=== PATIENT | female | born 1965 | race Two or more races ===

== ENCOUNTER → 2024-03-20 09:51 | Outpatient (REF) | payer OTHER, SELFPAY | LOC: RCS 09:51 | PROVIDERS: ATTENDING PHYSICIAN Internal Medicine Cardiovascular Disease; FAMILY PHYSICIAN Family Medicine | DX: R07.2 Precordial pain (principal); E78.2 Mixed hyperlipidemia | CPT/HCPCS: 93017; 93350 ==

== ENCOUNTER 2024-08-12 17:50 | Inpatient (IN) | payer OTHER, SELFPAY ==
[2024-08-12] VITALS (9 sets, daily range): BP systolic 98–141; BP diastolic 49–81; BMI 27.4
--- NOTE | 2024-08-12 11:22 | ED.GENMED ---
ED Provider Triage
<Nathanael Lisa PA-C - Last Filed: 08/12/24 11:25>
-
Patient seen by provider in Triage?: Seen in Triage
58-year-old female presents with urinary symptoms ongoing for several days. She spoke with his family doctor over the phone 2 days ago and was started on Bactrim. She has been on back for 2 days but notes no improvement of symptoms. She notes a
fever. Temperature at triage is 101. This was an hour after taking a gram of Tylenol at home. She is not tachycardic at triage. She complains of mild suprapubic burning but no flank pain or reported vomiting.
Will check urinalysis and labs including lactic acid. Due to lower abdominal discomfort, CT ordered with IV contrast
History of Present Illness
<Nathanael Lisa PA-C - Last Filed: 08/12/24 11:25>
General
Chief Complaint: Urinary Symptoms
Time Seen by Provider: 08/12/24 13:41
<Kathrin Haywood MD - Last Filed: 08/12/24 16:01>
General
Source: patient and family
History of Present Illness
History of Present Illness:
58-year-old female presents here with her daughter who is a physician. She was feeling her usual self until Monday when she noted extreme dysuria associated with urinary frequency and urgency. She had leftover Bactrim which she started. She felt
better until Monday afternoon when her symptoms returned and were more intense. She spoke with her primary care doctor and was given a new prescription for Bactrim given the concern that her older prescription may have been . She started
that on Monday afternoon. She continues to be compliant with the Bactrim. Yesterday she noted slightly less dysuria but increasing urinary frequency. Today she felt like she got worse. She has not bribes fever, chills, fatigue, and her head
feeling heavy. She denies flank or back pain, chest pain, shortness of breath, cough, sore throat, rhinorrhea. She feels suprapubic 'pressure', and notes a 'lingering pain' across her lower abdomen including her right lower quadrant. This is
without radiation, exacerbating, relieving factors.
Past History
<Nathanael iLsa PA-C - Last Filed: 08/12/24 11:25>
Past History
ED Past Medical History: None
ED Past Surgical History: Tonsilectomy
Social History
Tobacco: Non-smoker
Alcohol: None
Drug: None
Personal:
<Kathrin Haywood MD - Last Filed: 08/12/24 16:01>
Past History
ED Past Medical History: Psychiatric
Social History
Living: with family
Phy Exam
<Kathrin Haywood MD - Last Filed: 08/12/24 16:01>
Physical Exam
Physical Exam:
GENERAL: Alert , in no apparent distress
EYE: pupils equal and reactive
NECK: Supple, no significant adenopathy.
ENT: o/p clr, mmm.
CARDIAC: Regular rate and rhythm .
LUNGS: Clear breath sounds bilaterally, no acute respiratory distress, no wheezes/rales/rhonchi
ABDOMEN: Soft, mild lower abdominal tenderness, no r/g, no cvat
NEUROLOGICAL: Alert and oriented, no focal neuro deficits
SKIN: Warm and dry, skin intact.
MUSCULOSKELETAL: No edema, well perfused.
PSYCH: Normal and appropriate interaction.
Sepsis
<Kathrin Haywood MD - Last Filed: 08/12/24 16:01>
Sepsis Screening
Sepsis Assessment: Sepsis
Sepsis Screen
Sepsis Screen: Sepsis
Date: 08/12/24
Time: 16:00
Course
<Nathanael Lisa PA-C - Last Filed: 08/12/24 11:25>
Orders/Labs/Results
Orders:
Orders
08/12/24 11:24
CT Abd/pelvis W Iv Cont Urgent
Comment:
Reason For Exam: lower abdominal pain, fever
08/12/24 11:31
Complete Blood Count/With Diff Urgent
Comprehensive Metabolic Panel Urgent
Lactic Acid Q4H
Comment: CANCEL 2nd LACTIC ACID IF 1st LACTIC ACID IS LESS THAN 2
Urinalysis Reflex To Culture Urgent
Date Specimen was Collected: 08/12/24
Time Specimen was Collected: 11:25
Urine Microscopic Reflex Cult Urgent
Blood Culture Urgent
CANDACE Source: Blood/Venous
Specimen Description:
Urine Culture Urgent
CANDACE Source: U
Specimen Description:
Date Specimen was Collected: 08/12/24
Time Specimen was Collected: 11:25
08/12/24 13:56
Ketorolac [Toradol] 10 mg IV NOW STA
08/12/24 13:57
0.9% Sodium Chloride 1000 ml [Nss] 1,000 ml IV BOLUS
08/12/24 15:34
Piperacillin/Tazo 3.375 Gram [Zosyn] 3.375 gram in 50 ml IV NOW
08/12/24 15:42
Phenazopyridine HCl [Pyridium] 200 mg PO NOW STA
08/12/24 16:00
0.9% Sodium Chloride 1000 ml [Nss] 1,000 ml IV 600 mls/hr
Abnormal Lab Results
08/12/24
11:31
WBC 12.8 H 10^3/uL
(4.8-10.8)
Hgb 11.8 L g/dL
(12.0-16.0)
MCH 25.9 L pg
(27.0-31.0)
MCHC 31.7 L g/dL
(33.0-37.0)
Abs Immat Gran (auto) 0.1 H 10^3/uL
(0-0.05)
Absolute Neuts (auto) 11.0 H 10^3/uL
(1.4-6.5)
Absolute Lymphs (auto) 1.1 L 10^3/uL
(1.2-3.4)
Absolute Monos (auto) 0.7 H 10^3/uL
(0.1-0.6)
Neutrophils % 85.5 H %
(42.2-75.2)
Lymphocytes % 8.3 L %
(20.5-51.1)
Carbon Dioxide 21 L mmol/L
(22-30)
Glucose 106 H mg/dl
(70-99)
Ur Occult Blood Reflex 3+ A
(Negative)
Leukocyte Esterase Rfl Trace A
(Negative)
Urine RBC 7-10 A /HPF
(0-2)
Urine Bacteria (Reflex) Many A
(Negative)
08/12/24 11:31
08/12/24 11:31
Vital Signs
Initial and Last Documented VS:
Initial Vital Signs
Temp Pulse Resp BP Pulse Ox
101.5 F H 94 18 141/75 93
08/12/24 11:22 08/12/24 11:22 08/12/24 11:22 08/12/24 11:22 08/12/24 11:22
Last Documented Vital Signs
Temp Pulse Resp BP Pulse Ox
97.7 F 76 13 112/49 98
08/12/24 15:53 08/12/24 15:53 08/12/24 15:53 08/12/24 15:53 08/12/24 15:53
<Kathrin Haywood MD - Last Filed: 08/12/24 16:01>
Orders/Labs/Results
Orders:
Orders
08/12/24 11:24
CT Abd/pelvis W Iv Cont Urgent
Comment:
Reason For Exam: lower abdominal pain, fever
08/12/24 11:31
Complete Blood Count/With Diff Urgent
Comprehensive Metabolic Panel Urgent
Lactic Acid Q4H
Comment: CANCEL 2nd LACTIC ACID IF 1st LACTIC ACID IS LESS THAN 2
Urinalysis Reflex To Culture Urgent
Date Specimen was Collected: 08/12/24
Time Specimen was Collected: 11:25
Urine Microscopic Reflex Cult Urgent
Blood Culture Urgent
CANDACE Source: Blood/Venous
Specimen Description:
Urine Culture Urgent
CANDACE Source: U
Specimen Description:
Date Specimen was Collected: 08/12/24
Time Specimen was Collected: 11:25
08/12/24 13:56
Ketorolac [Toradol] 10 mg IV NOW STA
08/12/24 13:57
0.9% Sodium Chloride 1000 ml [Nss] 1,000 ml IV BOLUS
08/12/24 15:34
Piperacillin/Tazo 3.375 Gram [Zosyn] 3.375 gram in 50 ml IV NOW
08/12/24 15:42
Phenazopyridine HCl [Pyridium] 200 mg PO NOW STA
08/12/24 16:00
0.9% Sodium Chloride 1000 ml [Nss] 1,000 ml IV 600 mls/hr
Abnormal Lab Results
08/12/24
11:31
WBC 12.8 H 10^3/uL
(4.8-10.8)
Hgb 11.8 L g/dL
(12.0-16.0)
MCH 25.9 L pg
(27.0-31.0)
MCHC 31.7 L g/dL
(33.0-37.0)
Abs Immat Gran (auto) 0.1 H 10^3/uL
(0-0.05)
Absolute Neuts (auto) 11.0 H 10^3/uL
(1.4-6.5)
Absolute Lymphs (auto) 1.1 L 10^3/uL
(1.2-3.4)
Absolute Monos (auto) 0.7 H 10^3/uL
(0.1-0.6)
Neutrophils % 85.5 H %
(42.2-75.2)
Lymphocytes % 8.3 L %
(20.5-51.1)
Carbon Dioxide 21 L mmol/L
(22-30)
Glucose 106 H mg/dl
(70-99)
Ur Occult Blood Reflex 3+ A
(Negative)
Leukocyte Esterase Rfl Trace A
(Negative)
Urine RBC 7-10 A /HPF
(0-2)
Urine Bacteria (Reflex) Many A
(Negative)
08/12/24 11:31
08/12/24 11:31
Vital Signs
Initial and Last Documented VS:
Initial Vital Signs
Temp Pulse Resp BP Pulse Ox
101.5 F H 94 18 141/75 93
08/12/24 11:22 08/12/24 11:22 08/12/24 11:22 08/12/24 11:22 08/12/24 11:22
Last Documented Vital Signs
Temp Pulse Resp BP Pulse Ox
97.7 F 76 13 112/49 98
08/12/24 15:53 08/12/24 15:53 08/12/24 15:53 08/12/24 15:53 08/12/24 15:53
<Kathrin Haywood MD - Last Filed: 08/12/24 16:01>
Update Note
Update Note:
Patient presents to the Emergency Department with __fever fatigue dysuria urinary frequency
Number and Complexity of Problems Addressed at the Encounter
� Chronic conditions affecting care:
� Acute Exacerbation and/or Progression of Chronic Illness:
� Differential Diagnosis includes: But not limited to pyelonephritis, urosepsis, cystitis, kidney stone, appendicitis, etc. etc.
Amount and/or Complexity of Data to be Reviewed and Analyzed
� I performed an independent evaluation of and my interpretation is:
EKG:
CT:CHEST:The included lung bases contain some mild dependent subsegmental atelectasis.
ABDOMEN:There is no focal intrinsic abnormality of the liver, spleen, gallbladder, pancreas or adrenal glands. No biliary tract dilatation is seen. Small simple right renal cysts are noted and there is a subcentimeter low-attenuation lateral right
renal lesion too small to characterize. In addition, best appreciated on delayed postcontrast, there is a small focus of decreased attenuation along the superior/medial aspect of the right kidney. There is a subcentimeter low-attenuation left renal
cysts. Renal excretion is symmetric. The abdominal aorta is normal in caliber. There is no retroperitoneal lymphadenopathy. Evaluation of the intestinal tract is markedly limited without oral contrast without intestinal obstruction. The there are no
right lower quadrant inflammatory changes.
PELVIS:The urinary bladder demonstrates demonstrates at least mild relative diffuse wall thickening. There is no true pelvis free fluid or significant.
SKELETON:There is no focal suspicious osseous lesion.
Xrays:
Laboratory Studies:leukocytosis iwth L shift, lactic wnl, urine abnl
Other:
� Review of other/old records reveals:
� Clinical information was obtained by an independent historian: Daughter who is bedside
� Prescriptions/Medications Considered but not given:
� Further testing considered but not performed:
Risk of Complications and/or Morbidity or Mortality of Patient Management
� Social determinants of health affecting care:
� Discussion with other providers (PCP, Hospitalists, Consultants, etc):
� Escalation of care including admission/observation vs risk of discharge considered: Case d/w ID (Dr Sauceda), agrees with zosyn given pt on bactrim. Bp remains satble, 30 cc/kg IVF ordered, pt resting comfortably, daughter updated.
D/w hospitalist for admission.
ED Attending Note
<Nathanael Lisa PA-C - Last Filed: 08/12/24 11:25>
-
Portions of this chart may have been created with voice recognition software.� Occasional wrong word or��sound alike� substitutions may have occurred due to the inherent limitations of voice recognition software.
Discharge Plan
Departure
Patient Disposition: Admit
Date of Disposition: 08/12/24
Time of Disposition: 15:59
Presentation/result/management discussed w/ accepting MD/DO: Hospitalist
Condition: Fair
Discharge Problem:
urosepsis
Prescriptions:
No Action
ibuprofen 200 mg Capsule
400 mg PO Q6HPRN PRN (Reason: mild pain/fever)
Theragen Tablet
1 tab PO DAILY
sulfamethoxazole-trimethoprim 800-160 mg tablet
1 tab PO BID
acetaminophen 500 mg Tablet
1,000 mg PO Q6HPRN PRN (Reason: mild pain/fever)
duloxetine 60 mg Capsule,Delayed Release(Dr/Ec)
60 mg PO DAILY
Referrals:
Vishal Weems MD [Family Provider] -
Interventions
Interventions:
*Risk Screen - Suicide Last Done: 08/12/24 11:22
*General Assessment Last Done: 08/12/24 11:22
*Neglect/Abuse Screening Last Done: 08/12/24 11:22
*ED COVID-19 Vaccine History Last Done: 08/12/24 11:22
Discharge Date and Time
Print Language: KHMER
[2024-08-12 11:58] LABS: Urine Albumin Trace (Neg - Trace); Urine Bilirubin Negative (Negative); Urine Character Clear (Clear); Urine Color Yellow; Urine Glucose Negative (Negative); Urine Ketone Negative (Negative); Urine Leukocyte Trace (Negative); Urine Nitrite Negative (Negative); Urine Occult Blood 3+ (Negative); Urine Specific Gravity 1.005 (<1.030); Urine Urobilinogen Negative (Neg - 1+)
[2024-08-12 12:00] LABS: % Basophils 0.2 % (0-2); % Immature Granulocytes 0.5 % (0-0.5); % Lymphocytes 8.3 % (20.5-51.1); % Monocytes 5.5 % (1.7-9.3); % Neutrophils 85.5 % (42.2-75.2); Absolute Immature Granulocytes 0.1 10^3/uL (0-0.05); Absolute Lymphocytes 1.1 10^3/uL (1.2-3.4); Absolute Monocytes 0.7 10^3/uL (0.1-0.6); Hematocrit 37.2 % (37.0-47.0); Hemoglobin 11.8 g/dL (12.0-16.0); Mean Corp Hgb Conc. 31.7 g/dL (33.0-37.0); Mean Corpuscular Hgb 25.9 pg (27.0-31.0); Mean Corpuscular Volume 81.6 fL (81.0-99.0); Mean Platelet Volume 10.1 fL (7.4-10.4); Nucleated Red Blood Cells % 0 %; Platelet Count 332 10^3/uL (130-400); Red Blood Cell Count 4.56 10^6/uL (4.20-5.40); Red Cell Dist. Width 14.3 % (11.5-14.5); White Blood Cell Count 12.8 10^3/uL (4.8-10.8)
[2024-08-12 12:03] LABS: Lactic Acid 1.7 mmol/L (0.7-2.0)
[2024-08-12 12:24] LABS: Urine Amorphous Seen
[2024-08-12 12:25] LABS: ALT (SGPT) 17 U/L (0-35); AST (SGOT) 22 U/L (14-36); Albumin 4.3 g/dl (3.5-5.0); Alkaline Phosphatase 115 U/L (38-126); Blood Urea Nitrogen 9 mg/dl (7-17); Calcium 9.9 mg/dl (8.4-10.2); Carbon Dioxide 21 mmol/L (22-30); Chloride 100 mmol/L (98-107); Glucose 106 mg/dl (70-99); Potassium 4.2 mmol/L (3.5-5.1); Sodium 136 mmol/L (135-145); Total Bilirubin 0.8 mg/dl (0.2-1.3); Total Protein 7.1 g/dl (6.3-8.2); eGFR > 60.00
[2024-08-12 12:26] LABS: Urine Bacteria Many (Negative)
[2024-08-12] MEDS: TORADOL 10 MG IV (14:29)
[2024-08-12] MEDS: NSS 1000 IV ×4 (14:29→23:51)
[2024-08-12] MEDS: ZOSYN 50 IV ×2 (16:00→22:17)
[2024-08-12] MEDS: Pyridium 200 MG PO (16:02)
--- NOTE | 2024-08-12 17:07 | HPS.HSE ---
Family Physician
-
Family Physician: Vishal Weems
Chief Complaint
-
Chills, dysuria,freq of urine, and low abdominal discomfort
History of Present Illness
Symptoms started 4 days ago.
It is dysuria with freq of urine and some urgency.
She had lower abdo discomfort. Denies back /flank pain.
She has issues of recurrent UTI in past. Last one was last year.
She had some Bactrim from previous prescription so started to take it. She called PCP who said that she will send in a prescription for Bactrim course. She did not have a urine checked.
No nausea vomiting.
No history of diabetes mellitus type 1 or 2.
Denies any history of drug-resistant bacteria isolates in the past.
Not immune suppressed.
Medical History
Past Medical History
Past Medical History: Reports Psychiatric (depression)
Past Surgical History: Reports Tonsilectomy
Social History
Tobacco: Non-smoker
Alcohol: None
Personal:
Living: With Family
Family History
Family History: Not pertinent
Allergies / Home Medications
Allergies reflects when Allergies were last updated in [facility].
Home Medications with original date entered in [facility]
Allergy/Medication List:
Allergies
Allergy/AdvReac Type Severity Reaction Status Date / Time
No Known Allergies Allergy Unverified 01/18/19 09:14
Home Medications
acetaminophen 500 mg tablet 1,000 mg PO Q6HPRN PRN mild pain/fever 08/12/24
duloxetine 60 mg capsule,delayed release 60 mg PO DAILY 08/12/24
ibuprofen 200 mg capsule 400 mg PO Q6HPRN PRN mild pain/fever 08/12/24
sulfamethoxazole 800 mg-trimethoprim 160 mg tablet 1 tab PO BID 08/12/24
therapeutic multivitamin 1 tab PO DAILY 08/12/24
Review of Systems
-
A 12 point ROS was completed and negative except as noted: Yes
Physical Exam
Vital Signs
Vital Signs
Temp Pulse Resp BP Pulse Ox
97.7 F 81 13 112/49 98
08/12/24 16:06 08/12/24 16:00 08/12/24 15:53 08/12/24 15:53 08/12/24 15:53
Physical Exam
General: Comfortable
HEENT: Moist mucous membranes
Respiratory: Clear
Cardiac: S1/S2 and Regular Rhythm; No Tachycardia
GI: Soft, Non Distended, Normal Bowel Sounds and Tender (Suprapubic area discomfort)
Genito-urinary: No costovertebral tender
Neuro: AO x 3
Laboratory Results
-
08/12/24 11:31
08/12/24 11:31
Laboratory Results
Lactic Acid Cancelled 08/12/24 15:30
Total Bilirubin 0.8 mg/dl (0.2-1.3) 08/12/24 11:31
AST 22 U/L (14-36) 08/12/24 11:31
ALT 17 U/L (0-35) 08/12/24 11:31
Alkaline Phosphatase 115 U/L (38-126) 08/12/24 11:31
Data Reviewed
-
CT Scan: Report Reviewed by me (Abdomen pelvis)
Lab Data: Labs Reviewed by me
Impression/Plan
-
UTI with sepsis. Though no clinical symptoms but based on CT of the abdomen pelvis cannot rule out a segmental pyelonephritis of the right kidney. In view of recurrent UTIs and prior antibiotic exposure will cover with Zosyn due to concern of MDR
till culture data is back. Admit to hospital because of sepsis and failed outpatient Bactrim.
Follow urine and blood culture data.
Follow WBC and clinical response.
Depression-continue the home medication.
[2024-08-12] MEDS: TYLENOL 650 MG PO (20:57)
[2024-08-12] MEDS: TORADOL 15 MG IV (22:48)
[2024-08-12] MEDS: LOVENOX 40 MG SC (22:51)
[2024-08-13] MEDS: NSS 1000 IV (01:26)
[2024-08-13] MEDS: NSS IV ×3 (01:26)
[2024-08-13] MEDS: ZOSYN 50 IV ×4 (04:19→21:12)
[2024-08-13] MEDS: TYLENOL 650 MG PO (05:56)
[2024-08-13 06:00] VITALS: BMI 27.4
[2024-08-13 07:18] LABS: Hematocrit 33.5 % (37.0-47.0); Hemoglobin 10.6 g/dL (12.0-16.0); Mean Corp Hgb Conc. 31.6 g/dL (33.0-37.0); Mean Corpuscular Hgb 25.7 pg (27.0-31.0); Mean Corpuscular Volume 81.3 fL (81.0-99.0); Mean Platelet Volume 10.3 fL (7.4-10.4); Platelet Count 308 10^3/uL (130-400); Red Blood Cell Count 4.12 10^6/uL (4.20-5.40); Red Cell Dist. Width 14.4 % (11.5-14.5); White Blood Cell Count 9.7 10^3/uL (4.8-10.8)
[2024-08-13 07:47] VITALS: BP 127/60
[2024-08-13] MEDS: CYMBALTA DELAYED RELEASE 60 MG PO (07:47)
[2024-08-13 09:34] LABS: Glycohemoglobin (HgbA1c) 5.8 % (4.0-5.6)
--- NOTE | 2024-08-13 11:38 | CM ---
CM met with pt and her dtr bedside
Pt resides with her spouse and elderly mother in a 2SH with 2 [address], full flight to 2nd floor
Pt denies use of DMEs and is independent with her ADLs
Denies financial insecurities
PCP- Vishal Weems
Rx- [facility]
Discharge Disposition- home, no needs anticipated, family transport
--- NOTE | 2024-08-13 12:15 | W.PN.HOSP.TC ---
Today's Communication/Plan
-
Continue with IV Zosyn. Follow blood culture data.
Assessment / Plan
Assessment / Plan
UTI with sepsis.
Cant rule out segmental pyelonephritis of the right kidney.
Bacteremic UTI - GNB in blood cx
Recurrent UTI
Improved fevers. Normalized white count. Feeling better. Continue current antibiotics and follow blood culture data. In view of bacteremic UTI and concern for segmental pyelonephritis will require antibiotics for 10 to 14 days.
Discussed with the daughter who is a physician at bedside. Advised to follow-up with the urologist because of recurrent UTI.
Depression-continue the home medication.
Total time spent on today's encounter was 52 minutes which included time spent in counseling the patient/family regarding diagnosis and treatment plan as listed above, goals of care, and symptom management. Case was discussed with nursing staff .
All labs and imaging personally reviewed by me. Remainder the time spent in detailed review of previous records, lab data, imaging, and other medical provider documentation.
Anticipated Discharge: 24 - 48 hours
Subjective/Interval History
-
Date of Service: August 13, 2024
No further chills. No fevers.
No nausea vomiting.
No flank pain.
Still persistent suprapubic discomfort. Dysuria improving.
Objective Data
-
Labs:
Laboratory Results
08/13/24
05:27
WBC 9.7
Hgb 10.6 L
Hct 33.5 L
Plt Count 308
Vital Signs:
Vital Signs
Temp Pulse Resp BP Pulse Ox
98.7 F 75 16 127/60 97
08/13/24 07:47 08/13/24 07:47 08/13/24 07:47 08/13/24 07:47 08/13/24 07:47
I&O
08/12/24 08/13/24 08/14/24
06:59 06:59 06:59
Intake Total 586 / 586
Balance 586 / 586
Review of Systems
-
Respiratory: Denies Trouble Breathing
Cardiac: Denies Chest Pain
Abdomen/GI: Denies Nausea or Vomiting
Neuro: Denies Dizzy
Physical Exam
-
General: Comfortable
Respiratory: Non Labored Respirations; Negative Accessory Resp Muscle Use
Cardiac: Regular Rhythm and S1/S2
GI: Soft
Genito-urinary: No Costovertebral Tender
Neuro: AO x 3
Psych: Calm
Data Reviewed
-
Labs: Labs Reviewed by me
[2024-08-13 16:10] VITALS: BP 124/59
[2024-08-13] MEDS: LOVENOX 40 MG SC (17:43)
[2024-08-13 22:25] VITALS: BP 118/61
[2024-08-14] MEDS: ZOSYN 50 IV ×2 (04:10→09:11)
--- NOTE | 2024-08-14 04:49 | DOWNTIME ---
There was a [employer] Client Refund [employer]ist Downtime on 08/14/2024 from 0100 to 08/14/2024 at 0355. Downtime documentation of patient's care, including medication administrations, has been reconciled in the electronic record per guidelines. Refer to the
patient's paper chart under the miscellaneous tab to see printed paper medication records and downtime forms.
[2024-08-14 06:00] VITALS: BMI 26.6
[2024-08-14 06:23] LABS: Hematocrit 33.6 % (37.0-47.0); Hemoglobin 10.6 g/dL (12.0-16.0); Mean Corp Hgb Conc. 31.5 g/dL (33.0-37.0); Mean Corpuscular Hgb 26.8 pg (27.0-31.0); Mean Corpuscular Volume 84.8 fL (81.0-99.0); Mean Platelet Volume 10.2 fL (7.4-10.4); Platelet Count 294 10^3/uL (130-400); Red Blood Cell Count 3.96 10^6/uL (4.20-5.40); Red Cell Dist. Width 14.3 % (11.5-14.5); White Blood Cell Count 7.5 10^3/uL (4.8-10.8)
[2024-08-14 07:00] VITALS: BP 120/66
[2024-08-14] MEDS: CYMBALTA DELAYED RELEASE 60 MG PO (09:11)
--- NOTE | 2024-08-14 12:58 | W.PN.HOSP.TC ---
Today's Communication/Plan
-
DC
Assessment / Plan
Assessment / Plan
UTI with sepsis.
Cant rule out segmental pyelonephritis of the right kidney.
Bacteremic UTI - GNB in blood cx
Recurrent UTI
Resolved fevers. Normalized white count. Feeling better. Improved symptoms.
Since it is noted-switch to oral ciprofloxacin to finish a 10-day course.
Discussed with the daughter who is a physician at bedside 08/13 . Advised to follow-up with the urologist because of recurrent UTI.
Depression-continue the home medication.
Diarrhea-suspect antibiotic related. Zosyn currently switched to Cipro. Patient advised to try symptomatic treatment at home and see the changes while on Cipro. If more than 4 of 5 bowel movements consistently or any blood in the stool to
follow-up with PCP.
Anemia-suspect initial drop may be related to dilution and some of it may be anemia of acute inflammation. Advised to follow-up with repeat CBC in a week and if still low to evaluate further.
Discussed with daughter who is a physician regarding the findings, diagnosis, and treatment, and follow-up plan.
Total time of dc 32 min
Anticipated Discharge: Today
Subjective/Interval History
-
Date of Service: August 14, 2024
Improved symptoms-much improved dysuria.
Today she is bothered with loose stools-had 3 of them. Had associated crampy abdominal discomfort. No nausea vomiting though.
No fever chills.
No history of C. difficile.
Objective Data
-
Labs:
Laboratory Results
08/14/24
05:40
WBC 7.5
Hgb 10.6 L
Hct 33.6 L
Plt Count 294
Vital Signs:
Vital Signs
Temp Pulse Resp BP Pulse Ox
98.5 F 75 16 120/66 97
08/14/24 07:00 08/14/24 07:00 08/14/24 07:00 08/14/24 07:00 08/14/24 07:00
I&O
08/13/24 08/14/24 08/15/24
06:59 06:59 06:59
Intake Total 586 / 586 720 / 720
Balance 586 / 586 720 / 720
Review of Systems
-
Constitutional: Denies Fever or Fatigue
Respiratory: Denies Cough or Trouble Breathing
Cardiac: Denies Chest Pain
Neuro: Denies Dizzy
Physical Exam
-
General: Comfortable
Respiratory: Non Labored Respirations and Accessory Resp Muscle Use
Cardiac: Regular Rhythm and S1/S2; Negative Tachycardic
GI: Soft
Neuro: AO x 3
Data Reviewed
-
Labs: Labs Reviewed by me
--- NOTE | 2024-08-14 13:04 | W.DCSUMMARY ---
Discharge Summary
Discharge Data
Date of Admission: 08/12/24
Date of Discharge: 08/14/24
-
Pending Results: No
Hospital Course
Primary diagnosis:
Escherichia coli bacteremic urinary tract infection
Cannot rule out right kidney segmental pyelonephritis
Anemia
Secondary diagnosis:
Depression
Hospital course:
Patient presented with symptoms of dysuria, frequency of urine, urgency and suprapubic discomfort. She also had chills and rigors at home on the day of presentation. She was noted to be febrile and she ruled in for sepsis. She was trying the oral
Bactrim she had at home without much benefit. She had a history of recurrent UTIs but none this year prior to current episode.
CT done in the ER showed no evidence of obstruction or stones but showed small focal area of decreased attenuation along the upper pole right kidney, nonspecific, cannot exclude segmental pyelonephritis. Possible cystitis noted on CT.
Her cultures both in the urine and bladder were positive for E. coli. It was resistant to Bactrim which explains her poor response.
She was switched to oral ciprofloxacin to complete a 10-day course. She had an EKG which showed normal QTc.
During the stay here she was noted to be slightly anemic with hemoglobin 11.8 on admission which dropped further to 10.6 and stabilized at that level. I suspect some of it may be dilutional with fluids and some may be anemia of acute inflammation.
Advised her to repeat a CBC a week later and investigate further if still persistently low. No prior history of anemia.
Discharge Plan
-
Patient Disposition: Home (Routine Discharge)
Discharge Diagnosis/Procedures: E. coli bacteremic UTI
Diet: Regular
Activity: As tolerated
Driving Restrictions: As prior to admission
Blood Work: CBC blood work next week - obtain through your PCP
Referrals:
Vishal Weems MD [Family Provider] - in less than 1 week
Prescriptions:
New
ciprofloxacin HCl 500 mg tablet
500 mg PO BID Qty: 16 0RF
Continued
ibuprofen 200 mg Capsule
400 mg PO Q6HPRN PRN (Reason: mild pain/fever)
therapeutic multivitamin Tablet
1 tab PO DAILY
acetaminophen 500 mg Tablet
1,000 mg PO Q6HPRN PRN (Reason: mild pain/fever)
duloxetine 60 mg Capsule,Delayed Release(Dr/Ec)
60 mg PO DAILY
Discontinued
sulfamethoxazole-trimethoprim 800-160 mg tablet
1 tab PO BID
Discharge Orders:
Discharge Patient (As Directed); Ordered 08/14/24
Ordered By: Jer Gomez
Discharge Date and Time
Print Language: SYRIAC
[2024-08-14 14:03] VITALS: BP 134/72
--- NOTE | 2024-08-14 14:11 | CM ---
MD entered order for discharge .
Spoke with pt in room she said that she was ready for dc.
Her dgt Kailee will drive her home.
Offered VN she declined need.
PLAN Home no needs
== END 2024-08-14 14:36 | disposition home or self-care (01) | DRG 872 ==
LOC: 3 WEST ACU 17:50
PROVIDERS: Physician Assistant; ADMITTING PHYSICIAN Internal Medicine; EMERGENCY PHYSICIAN Emergency Medicine; FAMILY PHYSICIAN Family Medicine
DX: A41.9 Sepsis, unspecified organism (principal); N39.0 Urinary tract infection, site not specified; N12 Tubulo-interstitial nephritis, not specified as acute or chronic; F32.A Depression, unspecified; D64.9 Anemia, unspecified
CPT/HCPCS: 74177; 80053; 81003; 81015; 83036; 83605; 85025; 85027; 87040; 87077; 87086; 87149; 87186; 87205; 93005; 96365; 96375; 99285; Q9967

== ENCOUNTER → 2025-01-07 11:02 | Outpatient (REF) | payer OTHER, SELFPAY | LOC: HWWDC 11:02 | PROVIDERS: ATTENDING PHYSICIAN Student in an Organized Health Care Education/Training Program; FAMILY PHYSICIAN Family Medicine | DX: Z12.31 Encounter for screening mammogram for malignant neoplasm of breast (principal) | CPT/HCPCS: 77063; 77067 ==